=== PATIENT | female | born 1985 | race Caucasian/White ===

== ENCOUNTER 2016-12-05 17:25 | Emergency (ER) | payer MEDICAID, OTHER ==
[~2016-12-05] VITALS: Ht 160 cm; Wt 90.0 kg
[~2016-12-05 17:25] MED LIST: MACR100C PO; OXYC-360 PO; PREN0.01 PO; ZOVI200C24 PO
[2016-12-05 17:28] VITALS: BP 145/80; PULSE 72; RESP 15; TEMP 98.3; O2SAT 97
[2017-03-24] MEDS ORDERED: MACR100C2 PO (11:10)
[2017-03-24] MEDS ORDERED: PREN1CHW7 (11:14)
== END 2016-12-05 22:05 | disposition left against medical advice (07) ==
LOC: NED 17:25
DX: O26.90 Pregnancy related conditions, unspecified, unspecified trimester (principal)
CPT/HCPCS: 99281

== ENCOUNTER → 2017-02-23 | Outpatient (CLI) | payer MEDICAID ==
[~2017-02-23] MED LIST changes: +MACR100C2 PO; +PREN1CHW7
== END ==
LOC: HPND 13:51
PROVIDERS: ATTEND Obstetrics & Gynecology
DX: O35.8XX0 Maternal care for other (suspected) fetal abnormality and damage, not applicable or unspecified (principal); Z98.891 History of uterine scar from previous surgery
CPT/HCPCS: 76811

== ENCOUNTER 2017-06-21 12:38 | Inpatient (IN) | payer MEDICAID, OTHER ==
[2017-06-21] VITALS (43 sets, daily range): BP systolic 139–180; BP diastolic 76–115; PULSE 18–129; RESP 17–18; TEMP 97.5–98.3; O2SAT 97–100
[~2017-06-21 12:38] MED LIST changes: -MACR100C PO; -OXYC-360 PO; -PREN0.01 PO; -ZOVI200C24 PO
[2017-06-21] MEDS ORDERED: NIFEdipine 10 MG CAP ONE ×2 (12:58→13:29)
[2017-06-21 13:28] LABS: HEMATOCRIT 34.5 % (35.0-46.0); MEAN CELL VOLUME 84.2 FL (80.0-100.0); MEAN CORPUSCULAR HEMOGLOBIN 28.8 PG (27.0-34.0); MEAN CORPUSCULAR HGB CONC 34.2 % (32.0-36.0); PLATELET COUNT 278 TH/MM3 (150-450); RED CELL DISTRIBUTION WIDTH 13.5 % (11.6-17.2); REVIEW FLAG FINAL; WHITE BLOOD COUNT 7.5 TH/MM3 (4.0-11.0)
[2017-06-21 13:38] LABS: BACTERIA, URINE OCC /hpf; BLOOD, URINE NEG (NEG); COMMENT (UR) CULT NOT INDICATED; CULTURE IF INDICATED CULT NOT INDICATED; GLUCOSE,URINE NEG (NEG); KETONE, URINE NEG (NEG); NITRITE,URINE NEG (NEG); PH, URINE 7.5 (5.0-8.5); SQUAMOUS EPITHELIAL CELL URINE <1 /hpf (0-5); URINE COLOR YELLOW (YELLW/STRAW)
[2017-06-21 13:51] LABS: ALT (GPT) 11 U/L (10-53); ANION GAP 10 MEQ/L (5-15); AST (GOT) 12 U/L (15-37); BICARBONATE 19.9 MEQ/L (21.0-32.0); BLOOD UREA NITROGEN 5 MG/DL (7-18); CHLORIDE 108 MEQ/L (98-107); GLOMERULAR FILTRATION RATE 125 ML/MIN (>89); POTASSIUM 3.3 MEQ/L (3.5-5.1); SODIUM (NA) 138 MEQ/L (136-145); URIC ACID 3.9 MG/DL (2.6-6.0)
[2017-06-21 13:53] LABS: ALKALINE PHOSPHATASE 124 U/L (45-117); TOTAL BILIRUBIN ADULT 0.2 MG/DL (0.2-1.0)
[2017-06-21] MEDS ORDERED: LACTATED RINGER'S 1000 ML INJ 1,000 ML IV ONE (14:12)
[2017-06-21] MEDS ORDERED: LABETALOL HCL 100 MG/20 ML VIAL IV PUSH PRN ×3 (14:15→17:15)
[2017-06-21] MEDS ORDERED: ONDANSETRON HCL 4 MG/2 ML VIAL IV PRN (14:15)
[2017-06-21] MEDS ORDERED: CALCIUM GLUCONATE 10% 1 GM/10 ML VIAL IV PUSH PRN ×2 (14:15→17:15)
[2017-06-21] MEDS ORDERED: hydrALAZINE HCL 20 MG/ML VIAL IV PUSH PRN ×2 (14:15→14:45)
[2017-06-21] MEDS ORDERED: SODIUM CHLORIDE 0.9% FLUSH 5 ML FLUSH IV PRN (14:15)
--- NOTE | 2017-06-21 14:17 | HHI.HP ---
History & Physical H&P Patient Name: Asiya Taylor Unit Number: [id number] Date of : 1985 Patient Status: Registered Clinic Attending Doctor: Jordin Gordillo II, MD HPI HPI Chief Complaint sent over from [facility] for high BP Date Seen: May 24, 2017 Travel History International Travel<30 Days: No Contact w/Intl Traveler<30Days: No Known Affected Area: No History of Present Illness HPI The patient is a 32-year-old white female previous now at 38 weeks EDC 07/01/17 presents for high BP in office today. BP has been WNL thru preg until last visit and today. Patient's no complaints problems to has had good care, gestational criteria adequate patient wishes have a repeat done at 39 weeks and a tubal ligation done as well. She understands tubal is considered permanent yet less EFFECTIVE WITH A 1 IN 300 FAILURE RATE. 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 and she states this bladder issue was what caused her that we have no documentation of that Obstetric History Obstetric History 1 done as an emergency , had HTN with that preg at end Past Surgical History Narrative Surgical 1 Social History Alcohol Use: No Tobacco Use: No Substance Abuse: No Allergies-Medications Allergies-Medications (Allergen,Severity, Reaction): Coded Allergies: Latex (Verified Allergy, Severe, PROLONGED CONTACT GETS HIVE, 05/17/17) Penicillin (Verified Allergy, Severe, Hives, 05/17/17) Home Meds Active Scripts Vit W/ Ferric Phospha (Vitafol Gummies 3.33-0.333-34.8 mg)1 Chw Chw1 Chew .ROUTE DAILY #60 CHEW Ref 2 NS Prov:Hannah Sheikh CNM [employer] 03/24/17 Nitrofurantoin Monohydrate Macrocrystals (Macrobid)100 Mg [id number] Mg PO HS #60 CAP Ref 1 Prov:Hannah Sheikh CNM [employer] 03/24/17 ROS Review of Systems General / Constitutional: No: Fever, Weight Gain, Chills, Other Eyes: No: Diploplia, Blurred Vision, Visual changes, Pain, Photophobia HENT: No: Headaches, Vertigo, Lightheadedness Cardiovascular: No: Irregular Rhythm, Chest Pain or Discomfort, Palpitations, Tachycardia, Syncope, Varicosities, Edema, Cyanosis Respiratory: No: Cough, Short of Breath, Other Gastrointestinal: No: Nausea, Vomiting, Diarrhea Genitourinary: No: Decreased Urinary Output, Oliguria Musculoskeletal: No: Limited ROM, Weakness, Cramping, Edema, Pain Skin: No Rash, No Itching, No Dryness, No Lumps, No Change in Pigmentation, No Change in Nails, No Alopecia, No Lesions Neurologic: No: Weakness, Dizziness, Syncope, Focal Abnormalities, Coordination Problem, Headache, Slurred Speech, Seizures Psychiatric: No: Depression, Suicidal Ideations, Homicidal Ideation Endocrine: No: Heat Intolerance, Cold Intolerance, Polydipsia, Polyuria, Other Physical Exam Physical Exam Narrative GENERAL: Well-nourished, well-developed patient. SKIN: Warm and dry. HEAD: Normocephalic and atraumatic. EYES: No scleral icterus. No injection or drainage. ENT: No nasal drainage noted. Mucous membranes pink. Airway patent. NECK: Supple, trachea midline. No JVD. CARDIOVASCULAR: Regular rate and rhythm without murmurs, gallops, or rubs. RESPIRATORY: Breath sounds equal bilaterally. No accessory muscle use. BREASTS: Bilateral exam showed no masses , no retractions, no nipple discharge. ABDOMEN/GI: Abdomen soft, non-tender, bowel sounds present, no rebound, no guarding Gravid to [38-] weeks size Fundal Height: [-38] GENITOURINARY: External Genitalia: intact and normal in appearance BUS glands: [-] Cervix: [Closed-] Dilatation: [-Closed] Effacement: [-] Thick Station: [-3] Presentation: [-vtx] Membranes: [intact ] Uterine Contractions: [none-] FHT's: Category: [1-] Baseline: [-144] Reactive: [-yes] Variability: [-mod] Decels: [-none] EXTREMITIES: No cyanosis 1-2 + edema. BACK: Nontender without obvious deformity. No CVA tenderness. NEUROLOGICAL: Awake and alert. Motor and sensory grossly within normal limits. Five out of 5 muscle strength in all muscle groups. Normal speech. Data Data [facility] Interpretation(s) Patient is a 32-year-old white female previous now 38 weeks here for HTN in late . BP 180/106 resistent to po procardia Patient wants repeat and tubal ligation. She has tubal papers signed over 30 days in advance was told to have a Copy with her when she presents Plan- proceed with [facility] BTL now , magIV postop Condition: Guarded Jordin Gordillo II, MD, Bill L. II MD Jun 21, 2017 14:17 Jordin Gordillo II, MD Jun 21, 2017 14:17
[2017-06-21] MEDS ORDERED: LACTATED RINGER'S 1000 ML INJ 1,000 ML IV SCH (14:42)
[2017-06-21] MEDS ORDERED: MORPHINE SULFATE PF 5 MG/10 ML VIAL ONE (14:56)
[2017-06-21] MEDS ORDERED: ONDANSETRON HCL 4 MG/2 ML VIAL ONE (14:56)
[2017-06-21] MEDS ORDERED: CLINDAMYCIN INJ 600 MG in SODIUM CHLORIDE 0.9% INJ 100 ML IV SCH (15:15)
[2017-06-21] MEDS ORDERED: CLINDAMYCIN PHOS 600 MG/4 ML VIAL ONE (15:29)
[2017-06-21] MEDS ORDERED: OXYTOCIN 10 UNIT/ML AMP ONE (15:31)
[2017-06-21] MEDS ORDERED: CITRIC ACID-SODIUM CITRATE LIQ 30 ML UDC PO SCH (15:45)
[2017-06-21] MEDS ORDERED: fentaNYL CITRATE 250 MCG/5 ML AMP ONE (16:44)
[2017-06-21] MEDS ORDERED: MAGNESIUM SULFATE 40 GM PREMIX 1,000 ML ONE (17:12)
[2017-06-21] MEDS ORDERED: ACETAMINOPHEN 325 MG TAB PO PRN (17:15)
[2017-06-21] MEDS ORDERED: oxyCODONE/ACETAMINOPHEN 5 MG/325 MG TAB PO PRN (17:15)
[2017-06-21] MEDS ORDERED: MAGNESIUM SULFATE 4 GM PREMIX 100 ML IV ONE (17:15)
[2017-06-21] MEDS ORDERED: SIMETHICONE 80 MG CHEWABLE TAB PO PRN (17:15)
[2017-06-21] MEDS ORDERED: ONDANSETRON HCL 4 MG/2 ML VIAL IV PUSH PRN (17:15)
[2017-06-21] MEDS ORDERED: OXYTOCIN 30 UNITS-500ML PREMIX 500 ML IV ONE (17:15)
[2017-06-21] MEDS ORDERED: KETOROLAC TROMETHAMINE 60 MG/2 ML (IM) VIAL IM PRN (17:15)
[2017-06-21] MEDS ORDERED: SODIUM CHLORIDE 0.9% FLUSH 10 ML FLUSH IV FLUSH PRN (17:15)
[2017-06-21] MEDS: MAGNESIUM SULFATE 40 GM PREMIX 1,000 ML IV SCH (17:26)
[2017-06-21] MEDS ORDERED: fentaNYL CITRATE 250 MCG/5 ML AMP IV ONE (17:41)
[2017-06-21] MEDS ORDERED: LACTATED RINGER'S 1,000 ML BAG IV ONE (17:41)
[2017-06-21] MEDS ORDERED: OXYTOCIN 30 UNITS-500ML PREMIX 500 ML ONE (17:53)
[2017-06-21] MEDS ORDERED: EPIDURAL-DO NOT ADMINISTER ANTICOAGULANTS PRN (19:30)
[2017-06-21] MEDS ORDERED: EPIDURAL-DIPHENHYDRAMINE HCL 50 MG/ML VIAL IV PUSH PRN (19:30)
[2017-06-21] MEDS ORDERED: EPIDURAL-NO SYSTEMIC NARCOTICS PRN (19:30)
[2017-06-21] MEDS ORDERED: EPIDURAL-NALOXONE HCL 0.4 MG/ML AMP IV PRN (19:30)
[2017-06-21] MEDS ORDERED: EPIDURAL-DIPHENHYDRAMINE HCL 50 MG CAP PO PRN (19:30)
[2017-06-21] MEDS: SODIUM CHLORIDE 0.9% FLUSH 10 ML FLUSH IV FLUSH SCH (21:00)
[2017-06-21] MEDS ORDERED: SODIUM CHLORIDE 0.9% FLUSH 5 ML FLUSH IV SCH (21:00)
[2017-06-21] MEDS: CLINDAMYCIN INJ 600 MG in SODIUM CHLORIDE 0.9% INJ 100 ML IV SCH (21:23)
[2017-06-21] MEDS: LACTATED RINGER'S 1000 ML INJ 1,000 ML IV SCH (22:05)
[2017-06-22] VITALS (29 sets, daily range): BP systolic 108–162; BP diastolic 44–97; PULSE 81–126; RESP 18–20; TEMP 97.7–98.8; O2SAT 99
[2017-06-22] MEDS ORDERED: OXYTOCIN 30 UNITS-500ML PREMIX 500 ML IV PRN (03:15)
[2017-06-22] MEDS: IBUPROFEN 600 MG TAB PO PRN ×3 (03:29→21:50)
[2017-06-22] MEDS: CLINDAMYCIN INJ 600 MG in SODIUM CHLORIDE 0.9% INJ 100 ML IV SCH (03:30)
--- NOTE | 2017-06-22 07:10 | HHI.OB ---
Subjective Remarks Postoperative day # 1 AFVSS overnight. Incision not draining. Decreased lochia. Denies dysuria. No breast tenderness. She is feeding the baby via breast. Appetite good. No nausea or vomiting. Positive flatus/bowel movement. Ambulating well. Denies calf pain or shortness of breath. She had a headache this morning that improved with ibuprofen. Otherwise, she is doing well this morning and has no other complaints. Objective Vitals/I&O Vital Signs Date Time Temp Pulse Resp B/P Pulse Ox O2 Delivery O2 Flow Rate FiO2 06/22/17 06:01 95 119/57 06/22/17 05:15 18 06/22/17 05:01 120/59 06/22/17 05:01 90 06/22/17 04:15 97.7 06/22/17 04:15 18 06/22/17 04:01 102 148/85 06/22/17 03:18 106 18 149/84 06/22/17 02:18 107 18 144/89 06/22/17 00:15 97.9 06/22/17 00:04 18 06/22/17 00:03 94 147/79 06/21/17 22:15 18 06/21/17 22:15 98.3 06/21/17 22:01 94 149/85 06/21/17 21:23 18 06/21/17 21:20 103 148/90 06/21/17 21:15 18 06/21/17 20:30 18 06/21/17 20:15 108 97 06/21/17 20:10 102 97 06/21/17 20:00 97.7 06/21/17 19:55 103 99 06/21/17 19:50 97 98 06/21/17 19:30 97.7 06/21/17 19:30 18 06/21/17 19:00 18 06/21/17 18:37 106 144/88 06/21/17 18:30 18 06/21/17 18:15 18 18 06/21/17 18:15 97.9 06/21/17 18:15 101 06/21/17 18:14 154/76 06/21/17 18:00 18 18 154/87 100 06/21/17 18:00 99 06/21/17 17:45 120 145/81 99 06/21/17 17:42 18 06/21/17 17:30 99 06/21/17 17:30 17 97 06/21/17 17:28 164/89 06/21/17 17:15 100 18 160/99 99 06/21/17 16:59 139/99 06/21/17 16:58 100 18 97 06/21/17 16:58 97.8 06/21/17 14:40 127 06/21/17 14:40 128 167/87 06/21/17 14:35 128 06/21/17 14:30 129 06/21/17 14:25 123 06/21/17 14:20 114 160/92 06/21/17 14:20 109 06/21/17 14:15 118 06/21/17 14:10 112 06/21/17 14:05 103 06/21/17 14:00 96 162/101 06/21/17 14:00 95 06/21/17 13:41 81 163/115 06/21/17 13:40 82 06/21/17 13:36 78 179/98 06/21/17 13:35 78 06/21/17 13:30 86 06/21/17 13:27 84 180/103 06/21/17 13:25 82 06/21/17 13:20 86 06/21/17 13:15 84 06/21/17 13:15 82 163/105 06/21/17 12:57 97.5 06/21/17 12:57 85 18 180/105 Result Diagram: 06/21/17 1300 06/21/17 1300 Objective Remarks GENERAL: Well-nourished, well-developed patient. CARDIOVASCULAR: Regular rate and rhythm without murmurs, gallops, or rubs. RESPIRATORY: Breath sounds equal bilaterally. No accessory muscle use. ABDOMEN/GI: Abdomen soft, non-tender, bowel sounds present. Incision: Clean, dry and intact. Fundus: Firm, non-tender at umbilicus. GENITOURINARY: Light to moderate bleeding. EXTREMITIES: No cyanosis or edema, non-tender, without signs of DVT. Medications and IVs Current Medications Medications (Trade) Dose Ordered Sig/Shekhar Route Start Time Stop Time Status Last Admin (Lr 1000 ml Inj) 1,000 ml @ 100 mls/hr Q10H IV 06/21/17 22:05 06/22/17 18:04 (NS Flush) 2 ml BID IV FLUSH 06/21/17 21:00 (NS Flush) 2 ml UNSCH PRN IV FLUSH 06/21/17 17:15 (Mylicon Chew) 80 mg QID PRN PO 06/21/17 17:15 (Tylenol) 650 mg Q6H PRN PO 06/21/17 17:15 (Motrin) 600 mg Q6H PRN PO 06/21/17 17:15 06/22/17 03:29 (Percocet 5-325 Mg) 1 tab Q4H PRN PO 06/21/17 17:15 (Percocet 5-325 Mg) 2 tab Q4H PRN PO 06/21/17 17:15 (Michaelle-Colace) 2 tab Q12H PRN PO 06/21/17 17:15 (M-M-R Ii Inj) 0.5 ml ONCE ONCE SQ 06/22/17 16:00 06/22/17 16:01 (Boostrix Inj) 0.5 ml ONCE ONCE IM 06/22/17 16:00 06/22/17 16:01 Ondansetron HCl 4 mg 4 mg Q6H PRN IV PUSH 06/21/17 17:15 06/21/17 20:17 (Magnesium Sulfate 40 Gm Premix) 1,000 ml @ 50 mls/hr Q20H IV 06/21/17 17:06 06/21/17 17:26 (Calcium Gluconate Inj) 1 gm UNSCH PRN IV PUSH 06/21/17 17:15 (Trandate Inj) 20 mg Q20M PRN IV PUSH 06/21/17 17:15 Miscellaneous Information NO SYSTEMIC NARCOTICS TO BE GIVEN FO... UNSCH PRN .XX 06/21/17 19:30 06/22/17 19:29 (Narcan Inj) 0.4 mg UNSCH PRN IV 06/21/17 19:30 06/22/17 19:29 (Benadryl Inj) 25 mg Q6H PRN IV PUSH 06/21/17 19:30 06/22/17 19:29 (Benadryl) 50 mg Q6H PRN PO 06/21/17 19:30 06/22/17 19:29 Miscellaneous Information ALL NURSING DEPARTMENTS UNSCH PRN .XX 06/21/17 19:30 06/22/17 19:29 Assessment/Plan Assessment and Plan 32 y/o female who is POD# 1 s/p repeat CXN for PIH. -Continue Magnesium Sulfate x 24 hours (started 06/21 at 1730) -Labetalol 20mg IV Q20min PRN BP >160/110 -Continue routine care. -Percocet and Motrin PRN pain. -Encouraged OOB. Advised pelvic rest for 6 wks. Will need a f/u appt. in 1 wk for incision check. -Re: ctrl, she is s/p bilateral tubal ligation -D/c in 2-[address] Gordillo and Dr. Carpio R1 Estella Merlos MD, R3 Jun 22, 2017 07:10
--- NOTE | 2017-06-22 07:35 | MP ---
cc: JOSUE GORDILLO MD DATE OF SURGERY 06/21/2017 PREOPERATIVE DIAGNOSIS A 38-week intrauterine previous with induced hypertension. POSTOPERATIVE DIAGNOSIS A 38-week intrauterine previous with induced hypertension. PROCEDURE PERFORMED Repeat low transverse section and tubal ligation SURGEON Josue Gordillo MD CASE REVIEWER Dr. Merlos ANESTHESIA Spinal PREOP NOTE The patient is a 32 year-old white female at 38 weeks, G4, P1 previous section who is scheduled for section next Monday, but has been sent over by the clinic for blood pressure elevation. Here on OB ED, blood pressure is 180/106 and she has no history of hypertension in this . Also, the patient wants a tubal ligation. Tubal papers have been signed. PROCEDURE The patient was taken to the operating room, placed in the supine position on the operating room table. After adequate spinal anesthesia was administered, she was prepped and draped. A previous Pfannenstiel incision was excised out and cast away. The incision carried through the fascia sharply and the fascia incised laterally and off the rectus muscle. The rectus split in the midline, peritoneal cavity entered sharply. There were some filmy adhesions of the omentum to the uterus. They were broken up pretty easily. Several smaller ones had to be Bovied through. The bladder blade placed at the lower edge of the incision. The visceral peritoneum reflected off the lower uterine segment. A transverse hysterotomy was made and extended bluntly bilaterally and a male weight 3335 grams was delivered at 3:49 p.m. 's of 9 and 9. There were no complications at delivery. Cord blood obtained. The placenta was manually extracted. The uterus was exteriorized, hysterotomy closed with a running layer of chromic followed by an imbricating suture of 0-chromic. Hemostasis was achieved. The bladder was reapproximated using 2-0 Vicryl in a running suture. The tubes were then tied. The left tube was isolated out and grasped with a Walcott clamp. The tube was elevated and the hemostat was passed through the mesosalpinx window and two sutures brought through that window. The tube was tied for and aft and a segment sent to pathology. The same was performed on the opposite side without difficulty. The uterus was elevated. Blood suctioned from the cul-de-sac and gutters. The uterus replaced in the peritoneal cavity. The parietoperitoneum closed in a running layer of 2-0 Vicryl. The fascia closed with a running layer with 0 Vicryl. The subcutaneous tissues were reapproximated with a running suture of 3-0 plain and skin closed with a subcuticular stitch of 3-0 Monocryl. The Optifoam silver dressing was placed on the incision line and will be left on for a week to 10 days and then a light ABD pad paper tape dressing was placed on top of that. ESTIMATED BLOOD LOSS 500 cc COMPLICATIONS There were no complications. Sponge, needle and instrument counts were correct x 2. The patient was taken to Recovery in stable condition. MD KEYSHA Segura/JOSE MIGUEL /4:59 PM /7:16 AM
[2017-06-22] MEDS: LACTATED RINGER'S 1000 ML INJ 1,000 ML IV SCH (08:05)
[2017-06-22] MEDS: SODIUM CHLORIDE 0.9% FLUSH 10 ML FLUSH IV FLUSH SCH ×2 (09:00→21:54)
[2017-06-22 09:12] LABS: AUTOMATED NEUTROPHIL # 10.2 TH/MM3 (1.8-7.7); BASOPHIL % 0.2 % (0.0-2.0); EOSINOPHIL # 0.1 TH/MM3 (0-0.4); EOSINOPHIL % 0.5 % (0.0-4.0); HEMATOCRIT 25.5 % (35.0-46.0); HEMO FLAGS DIFF FINAL; LYMPHOCYTE # 1.4 TH/MM3 (1.0-4.8); MEAN CELL VOLUME 84.4 FL (80.0-100.0); MEAN CORPUSCULAR HEMOGLOBIN 29.4 PG (27.0-34.0); MEAN CORPUSCULAR HGB CONC 34.8 % (32.0-36.0); MONO % 5.6 % (0.0-8.0); NEUT % 82.7 % (16.0-70.0); PLATELET COUNT 216 TH/MM3 (150-450); RED BLOOD COUNT 3.02 MIL/MM3 (4.00-5.30); RED CELL DISTRIBUTION WIDTH 13.6 % (11.6-17.2); WHITE BLOOD COUNT 12.4 TH/MM3 (4.0-11.0)
[2017-06-22 09:45] LABS: BICARBONATE 22.1 MEQ/L (21.0-32.0); CALCIUM-PROTEIN CORRECTED 7.7 MG/DL (8.5-10.1); POTASSIUM 3.3 MEQ/L (3.5-5.1); TOTAL BILIRUBIN ADULT 0.2 MG/DL (0.2-1.0)
[2017-06-22] MEDS: MAGNESIUM SULFATE 40 GM PREMIX 1,000 ML IV SCH (12:18)
[2017-06-22] MEDS: oxyCODONE/ACETAMINOPHEN 5 MG/325 MG TAB PO PRN ×2 (15:15→21:50)
[2017-06-22] MEDS ORDERED: DIPHTH/TETANUS/ACEL PERTUSSIS (BOOSTER) 0.5 ML VIAL/PFS IM ONE (16:00)
[2017-06-22] MEDS ORDERED: MEASLES, MUMPS, RUBELLA VACCINE 0.5 ML VIAL SQ ONE (16:00)
[2017-06-22] MEDS ORDERED: EPIDURAL-DIPHENHYDRAMINE HCL 50 MG CAP PO PRN (21:45)
[2017-06-22] MEDS ORDERED: EPIDURAL-NO SYSTEMIC NARCOTICS PRN (21:45)
[2017-06-22] MEDS ORDERED: EPIDURAL-DO NOT ADMINISTER ANTICOAGULANTS PRN (21:45)
[2017-06-22] MEDS ORDERED: EPIDURAL-NALOXONE HCL 0.4 MG/ML AMP IV PRN (21:45)
[2017-06-22] MEDS ORDERED: EPIDURAL-DIPHENHYDRAMINE HCL 50 MG/ML VIAL IV PUSH PRN (21:45)
[2017-06-22] MEDS: DOCUSATE SODIUM 50 MG/SENNA 8.6 MG TAB PO PRN (21:50)
[2017-06-23 04:02] VITALS: BP 156/87; PULSE 91; RESP 18; TEMP 98.9
[2017-06-23] MEDS: IBUPROFEN 600 MG TAB PO PRN ×4 (04:02→22:37)
[2017-06-23] MEDS: oxyCODONE/ACETAMINOPHEN 5 MG/325 MG TAB PO PRN ×4 (04:02→22:38)
[2017-06-23 08:35] VITALS: BP 137/87; PULSE 86; RESP 18; TEMP 97.9
--- NOTE | 2017-06-23 08:59 | HHI.OB ---
Subjective Post Operative Day: 2 Remarks Postoperative day # 2 AFVSS overnight. Incision not draining. Decreased lochia. Denies dysuria. No breast tenderness. She is feeding the baby via breast. Appetite good. No nausea or vomiting. Positive flatus/bowel movement. Ambulating well. Denies calf pain or shortness of breath. Otherwise, she is doing well this morning and has no other complaints. Objective Vitals/I&O Vital Signs Date Time Temp Pulse Resp B/P Pulse Ox O2 Delivery O2 Flow Rate FiO2 06/23/17 04:02 98.9 06/23/17 04:02 91 18 156/87 06/22/17 21:50 98.5 06/22/17 21:50 88 20 157/85 99 06/22/17 21:05 107 156/86 06/22/17 21:03 18 06/22/17 17:17 18 06/22/17 17:16 102 151/83 06/22/17 16:01 98 145/73 06/22/17 15:05 98.8 18 06/22/17 15:01 103 138/87 06/22/17 14:05 18 06/22/17 14:01 106 134/83 06/22/17 13:01 126 162/97 06/22/17 12:05 18 06/22/17 12:05 105 149/88 06/22/17 11:01 93 133/64 06/22/17 10:02 97.8 20 06/22/17 10:00 99 152/86 06/22/17 09:01 101 154/83 Result Diagram: 06/22/1781606/22/17816 Objective Remarks GENERAL: Well-nourished, well-developed patient. CARDIOVASCULAR: Regular rate and rhythm without murmurs, gallops, or rubs. RESPIRATORY: Breath sounds equal bilaterally. No accessory muscle use. ABDOMEN/GI: Abdomen soft, non-tender, bowel sounds present. Incision: Clean, dry and intact. Fundus: Firm, non-tender at umbilicus. GENITOURINARY: Light to moderate bleeding. EXTREMITIES: No cyanosis or edema, non-tender, without signs of DVT. Medications and IVs Current Medications Medications (Trade) Dose Ordered Sig/Shekhar Route Start Time Stop Time Status Last Admin (NS Flush) 2 ml BID IV FLUSH 06/21/17 21:00 8/17/17 21:54 (NS Flush) 2 ml UNSCH PRN IV FLUSH 06/21/17 17:15 (Mylicon Chew) 80 mg QID PRN PO 06/21/17 17:15 (Tylenol) 650 mg Q6H PRN PO 06/21/17 17:15 (Motrin) 600 mg Q6H PRN PO 06/21/17 17:15 06/23/17 04:02 (Percocet 5-325 Mg) 1 tab Q4H PRN PO 06/21/17 17:15 06/23/17 04:02 (Percocet 5-325 Mg) 2 tab Q4H PRN PO 06/21/17 17:15 (Michaelle-Colace) 2 tab Q12H PRN PO 06/21/17 17:15 06/22/17 21:50 Ondansetron HCl 4 mg 4 mg Q6H PRN IV PUSH 06/21/17 17:15 06/21/17 20:17 (Magnesium Sulfate 40 Gm Premix) 1,000 ml @ 50 mls/hr Q20H IV 06/21/17 17:06 06/22/17 12:18 (Calcium Gluconate Inj) 1 gm UNSCH PRN IV PUSH 06/21/17 17:15 (Trandate Inj) 20 mg Q20M PRN IV PUSH 06/21/17 17:15 Miscellaneous Information NO SYSTEMIC NARCOTICS TO BE GIVEN FO... UNSCH PRN .XX 06/22/17 21:45 06/23/17 21:44 (Narcan Inj) 0.4 mg UNSCH PRN IV 06/22/17 21:45 06/23/17 21:44 (Benadryl Inj) 25 mg Q6H PRN IV PUSH 06/22/17 21:45 06/23/17 21:44 (Benadryl) 50 mg Q6H PRN PO 06/22/17 21:45 06/23/17 21:44 Miscellaneous Information ALL NURSING DEPARTMENTS UNSCH PRN .XX 06/22/17 21:45 06/23/17 21:44 Assessment/Plan Assessment and Plan 32 y/o female who is POD# 2 s/p repeat CXN for PIH. -Magnesium last given 8/17 @ 1218 -Labetalol 20mg IV Q20min PRN BP >160/110 -Continue routine care. -Percocet and Motrin PRN pain. -Encouraged OOB. Advised pelvic rest for 6 wks. Will need a f/u appt. in 1 wk for incision check. -Re: ctrl, she is s/p bilateral tubal ligation -D/c in 1-[address] Helms and Dr. Merlos R3 Danilo Carpio MD R1 Jun 23, 2017 08:59
[2017-06-23] MEDS: NIFEdipine 10 MG CAP PO SCH ×3 (10:19→22:37)
[2017-06-23] MEDS: DOCUSATE SODIUM 50 MG/SENNA 8.6 MG TAB PO PRN ×2 (10:19→22:37)
[2017-06-23 12:45] VITALS: BP 117/61; PULSE 108; RESP 17; TEMP 98.4
[2017-06-23 16:25] VITALS: BP 121/71; PULSE 89; RESP 18; TEMP 98.1; O2SAT 98
[2017-06-23 20:40] VITALS: BP 147/79; PULSE 97; RESP 18; TEMP 98.2
[2017-06-23] MEDS: SODIUM CHLORIDE 0.9% FLUSH 10 ML FLUSH IV FLUSH SCH (22:37)
[2017-06-24 01:40] VITALS: BP 149/88; PULSE 102; RESP 20; TEMP 98.4
[2017-06-24] MEDS: MAGNESIUM SULFATE 40 GM PREMIX 1,000 ML IV SCH (05:06)
[2017-06-24] MEDS: IBUPROFEN 600 MG TAB PO PRN ×3 (05:14→17:23)
[2017-06-24] MEDS: NIFEdipine 10 MG CAP PO SCH ×2 (05:15→15:01)
[2017-06-24] MEDS: oxyCODONE/ACETAMINOPHEN 5 MG/325 MG TAB PO PRN ×3 (05:15→17:23)
--- NOTE | 2017-06-24 07:58 | HHI.OB ---
Subjective Post Operative Day: 3 Remarks POD 3 AF VSS doing well no problems , keisha diet , + BM uterus 1 + tender at umb optifoam dressing dry and intact will leave on another 4-5 d and remove at [facility] Objective Vitals/I&O Vital Signs Date Time Temp Pulse Resp B/P Pulse Ox O2 Delivery O2 Flow Rate FiO2 06/24/17 01:40 98.4 06/24/17 01:40 102 20 149/88 06/23/17 20:40 98.2 97 18 147/79 06/23/17 16:25 98.1 89 18 121/71 98 06/23/17 12:45 98.4 108 17 06/23/17 12:45 117/61 06/23/17 08:35 97.9 86 18 137/87 Result Diagram: 06/22/1781606/22/17816 Objective Remarks GENERAL: Well-nourished, well-developed patient. CARDIOVASCULAR: Regular rate and rhythm without murmurs, gallops, or rubs. RESPIRATORY: Breath sounds equal bilaterally. No accessory muscle use. ABDOMEN/GI: Abdomen soft, non-tender, bowel sounds present. Incision: Clean, dry and intact. Fundus: Firm, non-tender at umbilicus. GENITOURINARY: Light to moderate bleeding. EXTREMITIES: No cyanosis or edema, non-tender, without signs of DVT. Medications and IVs Current Medications Medications (Trade) Dose Ordered Sig/Shekhar Route Start Time Stop Time Status Last Admin (NS Flush) 2 ml BID IV FLUSH 06/21/17 21:00 06/23/17 22:37 (NS Flush) 2 ml UNSCH PRN IV FLUSH 06/21/17 17:15 (Mylicon Chew) 80 mg QID PRN PO 06/21/17 17:15 (Tylenol) 650 mg Q6H PRN PO 06/21/17 17:15 (Motrin) 600 mg Q6H PRN PO 06/21/17 17:15 06/24/17 05:14 (Percocet 5-325 Mg) 1 tab Q4H PRN PO 06/21/17 17:15 06/24/17 05:15 (Percocet 5-325 Mg) 2 tab Q4H PRN PO 06/21/17 17:15 (Michaelle-Colace) 2 tab Q12H PRN PO 06/21/17 17:15 06/23/17 22:37 Ondansetron HCl 4 mg 4 mg Q6H PRN IV PUSH 06/21/17 17:15 06/21/17 20:17 (Magnesium Sulfate 40 Gm Premix) 1,000 ml @ 50 mls/hr Q20H IV 06/21/17 17:06 06/22/17 12:18 (Calcium Gluconate Inj) 1 gm UNSCH PRN IV PUSH 06/21/17 17:15 (Trandate Inj) 20 mg Q20M PRN IV PUSH 06/21/17 17:15 (Procardia) 10 mg Q8HR PO 06/23/17 09:30 06/24/17 05:15 Assessment/Plan Assessment and Plan 32 y/o female who is POD# 2 s/p repeat CXN for PIH. -Magnesium last given 06/22 @ 1218 -Labetalol 20mg IV Q20min PRN BP >160/110 -Continue routine care. -Percocet and Motrin PRN pain. -Encouraged OOB. Advised pelvic rest for 6 wks. Will need a f/u appt. in 1 wk for incision check. -Re: ctrl, she is s/p bilateral tubal ligation -D/c in 1-2 more days. boogie Helms and Dr. Merlos R3 Jordin Gordillo II, MD Jun 24, 2017 07:58
[2017-06-24 08:00] VITALS: BP 116/77; PULSE 96; RESP 18; TEMP 97.7
[2017-06-24] MEDS ORDERED: OXYC1TAB63 PO (08:44)
[2017-06-24] MEDS ORDERED: SENN1TAB PO (08:44)
--- NOTE | 2017-06-24 08:45 | HHI.DCPOC ---
Discharge Care Plan Diagnosis: (1) delivery, delivered, current hospitalization (2) Pre-eclampsia affecting childbirth Report Symptoms to Your Doctor -Temperature above 100.5 degrees -Redness, of incision or excessive or foul smelling drainage -Unusual pain or calf pain -Increased vaginal bleeding -Painful or difficulty urinating -Feelings of extreme sadness or anxiety after 2 weeks Goals to Promote Your Health * To prevent worsening of your condition and complications * To maintain your health at the optimal level Directions to Meet Your Goals Take your medications as prescribed Follow your dietary instruction Follow activity as directed Ensure plenty of rest for recovery Drink fluids for hydration Keep your appointments as scheduled Take your immunizations and boosters as scheduled If your symptoms worsen call your PCP, if no PCP go to Urgent Care Center or Emergency Room Smoking is Dangerous to Your Health. Avoid second hand smoke Call the 24-hour crisis hotline for domestic abuse at Esther Butt MD R2 Jun 24, 2017 08:45
[2017-06-24] MEDS ORDERED: NIFE10 PO (08:54)
[2017-06-24] MEDS: DOCUSATE SODIUM 50 MG/SENNA 8.6 MG TAB PO PRN (11:51)
[2017-06-24 15:00] VITALS: BP 140/88; PULSE 105; RESP 18; TEMP 98.7
[2017-07-26] MEDS ORDERED: FLUC150T PO (13:56)
[2017-07-26] MEDS ORDERED: TERC0.8C VAGINAL (13:56)
== END 2017-06-24 18:42 | disposition home or self-care (01) | DRG 766 ==
LOC: HOBED 12:38 → H2EB 14:17 → H2EA 18:20 → H1EA 06-22 21:15
PROVIDERS: ADMIT Obstetrics & Gynecology Maternal & Fetal Medicine; ATTEND Obstetrics & Gynecology Maternal & Fetal Medicine
PROC: 10D00Z1 Extraction of Products of Conception, Low, Open Approach (ICD-10-PCS; principal; 2017-06-21)
PROC: 0UB70ZZ Excision of Bilateral Fallopian Tubes, Open Approach (ICD-10-PCS; 2017-06-21)
DX: O13.4 Gestational [pregnancy-induced] hypertension without significant proteinuria, complicating childbirth (principal); O34.219 Maternal care for unspecified type scar from previous cesarean delivery; Q62.7 Congenital vesico-uretero-renal reflux; Z30.2 Encounter for sterilization; Z37.0 Single live birth; Z3A.38 38 weeks gestation of pregnancy
CPT/HCPCS: 36415; 59025; 80053; 81001; 82043; 84550; 85025; 85027; 86850; 86900; 86901; 88302; J1885; J2274; J2405; J2590; J3010; J3475; J7120